=== PATIENT | male | born 1950 | race African-American/Black ===

== ENCOUNTER 2018-09-21 08:32 | Day surgery (SDC) | payer MEDICARE, MEDICAID ==
--- NOTE | 2018-09-18 17:15 | Pre-op HX & Phy Repo 2 SIG ---
DATE OF ADMISSION: 09/21/2018 DATE OF SURGERY: 09/21/2018 PREOPERATIVE DIAGNOSIS: Retinal detachment with multiple breaks, right eye. BRIEF NOTE: This is the first [facility] admission for this patient who was very nice 68-year-old gentleman, who complained of sudden decrease in vision roughly one month ago which has progressed. On examination, he was found to have a retinal detachment in the right eye with multiple breaks and an area in the left eye suspicious for localized walled off detachment superiorly. PAST MEDICAL HISTORY: Benign according to the patient. His ocular history is negative for previous surgery or laser. ALLERGIES: He has no known allergies. MEDICATIONS: He claims he takes no medications. PHYSICAL EXAMINATION: Best vision at the time of the visit was 20/400 in the right eye with constricted espinosa. The left eye was 20/20 with full espinosa. The pressures were 16 in either eye. The anterior segments were quiet. Funduscopic examination of the right eye showed a macula off detachment with retinal tear at 11, 3, 6 and 9. Smaller anterior tears were seen at 12, 4, and 8. The detachment extended from up above into the macula. A small area of retina below the inferotemporal arcade remained attached. The left fundus showed what appeared to be a localized retinal detachment superiorly that appeared to have demarcation at various sites. This did not extend posterior to the equator. No other retinal tears or lesions were seen. ASSESSMENT: 1. Retinal detachment with multiple breaks, right eye. 2. Localized detachment, left eye. PLAN: The plan is to perform pars plana vitrectomy with scleral buckle, endo drainage, endolaser, peripheral cryopexy, and possible silicone oil injection on the right eye. The left eye will be examined carefully and laser indirect treatment will possibly be performed to further barricade the localized area above. The risks and benefits of surgery were gone over the patient with potential for infection on the right, cataract formation, inability to complete the repair of the retina, the need for additional operations, and the possibility of loss of the eye. The risk of anesthesia was discussed. The patient understands and consents to the surgery, which will be performed on Friday morning. Best Lopez M.D. DR: Ana JOB#: [id number] CC:
[2018-09-21] VITALS (7 sets, daily range): BP systolic 125–147; BP diastolic 73–90
[~2018-09-21] VITALS: Ht 170.2 cm; Wt 77.1 kg
[~2018-09-21 08:32] MED LIST: BSS 15ml BTL ONE; BSS 500ml btl ONE; Bupivacaine 0.75% 30ml vial INJ ONE; Cyclopentolate 1% Opth Sol 2ml RIGHT EYE SCH; Dexamethasone 4mg/ml vial ONE; EPINEPHrine 1mg/1ml Amp ONE; Flurbiprofen 0.03% Opth Sol 2.5ml RIGHT EYE SCH; Kenalog-10 5ml Inj ONE; Kenalog-40 1ml Vial ONE; Lidocaine 2% MPF 5ml Vial INJ ONE; Maxitrol Opth Oint 3.5gm ONE; Neosporin Oph Soln 5ml Btl ONE; Phenylephrine 2.5% Op 2ml Soln RIGHT EYE SCH; Povidone-Iodine 5% opth solution ONE; Pred Forte 1% Opth Susp 1ml ONE; Pred Forte 1% Opth Susp 1ml RIGHT EYE SCH; Sodium Hyaluronate 10 mg/ml 0.85ml ONE; Tetracaine 0.5% Opth 4ml Soln ONE; Vigamox Opth Soln 3ml RIGHT EYE SCH
[2018-09-21] MEDS ORDERED: NS Irrig 1000ml ONE (08:33)
[2018-09-21] MEDS ORDERED: Midazolam 2mg/2ml Inj ONE (08:33)
[2018-09-21] MEDS ORDERED: LR 1000ml ONE (08:33)
[2018-09-21] MEDS ORDERED: Morphine Sulfate 10mg/ml Inj ONE (08:33)
[2018-09-21] MEDS ORDERED: fentaNYL 100 mcg/2 mL IV ONE (08:33)
[2018-09-21] MEDS ORDERED: Flurbiprofen 0.03% Opth Sol 2.5ml ONE (08:55)
[2018-09-21] MEDS ORDERED: Phenylephrine 2.5% Op 2ml Soln ONE (08:55)
[2018-09-21] MEDS ORDERED: Vigamox Opth Soln 3ml ONE (08:55)
[2018-09-21] MEDS: Vigamox Opth Soln 3ml BOTH EYES SCH ×3 (09:11→09:33)
[2018-09-21] MEDS: Phenylephrine 2.5% Op 2ml Soln BOTH EYES SCH ×3 (09:11→09:33)
[2018-09-21] MEDS: Cyclopentolate 1% Opth Sol 2ml BOTH EYES SCH ×3 (09:11→09:33)
[2018-09-21] MEDS: Flurbiprofen 0.03% Opth Sol 2.5ml BOTH EYES SCH ×3 (09:11→09:33)
[2018-09-21] MEDS ORDERED: NKM (09:37)
[2018-09-21 09:40] LABS: BASOPHILS % (AUTO) 1.1 % (0.0-2.0); EOSINOPHILS % (AUTO) 4.7 % (0.0-3.0); HEMATOCRIT 46.9 % (42.0-52.0); HEMOGLOBIN 15.6 G/DL (14.2-18.0); LYMPHOCYTES % (AUTO) 20.8 % (20.0-45.0); MEAN CORPUSCULAR VOLUME 84 FL (80-99); MONOCYTES % (AUTO) 6.7 % (1.0-10.0); NEUTROPHILS % (AUTO) 66.7 % (45.0-75.0); PLATELET COUNT 316 K/UL (150-450); RED BLOOD COUNT 5.59 M/UL (4.70-6.10); RED CELL DISTRIBUTION WIDTH 14.1 % (11.6-14.8); WHITE BLOOD COUNT 10.4 K/UL (4.8-10.8)
[2018-09-21 09:57] LABS: ANION GAP 10 mmol/L (5-15); BLOOD UREA NITROGEN 12 mg/dL (7-18); CALCIUM 8.7 MG/DL (8.5-10.1); CARBON DIOXIDE 24 MMOL/L (21-32); CHLORIDE 104 MMOL/L (98-107); CREATININE 1.2 MG/DL (0.55-1.30); POTASSIUM 4.2 MMOL/L (3.5-5.1); SODIUM 137 MMOL/L (136-145)
[2018-09-21] MEDS ORDERED: Pred Forte 1% Opth Susp 1ml BOTH EYES ONE (10:00)
[2018-09-21] MEDS ORDERED: Lidocaine 1% MPF 10mg/ml 5ml ONE (10:23)
[2018-09-21] MEDS ORDERED: Propofol 200mg/20ml IV ONE (10:23)
--- NOTE | 2018-09-21 10:46 | Pre-Procedure Note/Attestation ---
Pre-Procedure Note/Attestation Complete Prior to Procedure Planned Procedure: bilateral Procedure Narrative: 1)PPV, scleral buckle, cryo, endolaser, silicone oil or gas injection Right eye 2)Laser indirect treatment Left eye Indications for Procedure Pre-Operative Diagnosis: Total retinal detachment with multiple breaks Right eye, Localized fluid with retinal break Left eye Attestation I attest that I discussed the nature of the procedure; its benefits; risks and complications; and alternatives (and the risks and benefits of such alternatives ), prior to the procedure, with the patient (or the patient's legal agricultural sales representative). I attest that, if there was a reasonable possibility of needing a blood transfusion, the patient (or the patient's legal agricultural sales representative) was given the [place] Department of Health Services standardized written summary, pursuant to the [place] Blood Safety Act ([place] Health and Safety Code # 1645, as amended). I attest that I re-evaluated the patient just prior to the surgery and that there has been no change in the patient's H&P, except as documented below: IRENE ALEJANDRO Sep 21, 2018 10:46
[2018-09-21] MEDS ORDERED: DiphenhydrAMINE 50mg/ml Inj IVP PRN (11:15)
[2018-09-21] MEDS ORDERED: fentaNYL 100 mcg/2 mL IV PRN (11:15)
--- NOTE | 2018-09-21 11:24 | Anethesia Preoperative Eval ---
Anesthesia Pre-op PMH/ROS General Date of Evaluation: Sep 21, 2018 Time of Evaluation: 10:25 Anesthesiologist: Avelino ASA Score: ASA 2 Mallampati Score Class I : Soft palate, uvula, fauces, pillars visible Class II: Soft palate, uvula, fauces visible Class III: Soft palate, base of uvula visible Class IV: Only hard plate visible Mallampati Classification: Class II Surgeon: Jessica Diagnosis: Detached retina right eye Surgical Procedure: Victrectomy, membrane peel, Scleral buckle, endolaser Anesthesia History: none Family History: no anesthesia problems Allergies: Coded Allergies: No Known Allergies (Unverified , 09/21/18) Patient NPO?: Yes NPO Date: Sep 20, 2018 NPO Time: 20:00 Past Medical History Cardiovascular: Denies: HTN, CAD, [place], valve dz, arrhythmia, other Pulmonary: Denies: asthma, COPD, JENNIFER, other Gastrointestinal/Genitourinary: Denies: GERD, CRI, ESRD, other Neurologic/Psychiatric: Denies: dementia, CVA, depression/anxiety, TIA, other Endocrine: Denies: DM, hypothyroidism, steroids, other HEENT: Denies: cataract (L), cataract (R), glaucoma, [place] (L), [place] (R), other Hematology/Immune: Denies: anemia, DVT, bleeding disorder, other Musculoskeletal/Integumentary: Denies: OA, RA, DJD, DDD, edema, other PMH Narrative: EtOH PSxH Narrative: Denies Anesthesia Pre-op Phys. Exam Physician Exam Last Vital Signs Date Time Temp Pulse Resp B/P (MAP) Pulse Ox O2 Delivery O2 Flow Rate FiO2 09/21/18 09:44 98.7 81 18 136/84 97 Room Air Constitutional: NAD Neurologic: CN 2-12 intact Cardiovascular: RRR, no M/R/G Respiratory: CTA Gastrointestinal: S/NT/ND Airway Exam Mallampati Score: Class II MO: full ROM: full Teeth: missing, broken Anesthesia Pre-op A/P Labs Hematology Test 09/21/18 09:00 White Blood Count 10.4 K/UL (4.8-10.8) Red Blood Count 5.59 M/UL (4.70-6.10) Hemoglobin 15.6 G/DL (14.2-18.0) Hematocrit 46.9 % (42.0-52.0) Mean Corpuscular Volume 84 FL (80-99) Mean Corpuscular Hemoglobin 27.9 PG (27.0-31.0) Mean Corpuscular Hemoglobin Concent 33.3 G/DL (32.0-36.0) Red Cell Distribution Width 14.1 % (11.6-14.8) Platelet Count 316 K/UL (150-450) Mean Platelet Volume 6.4 FL (6.5-10.1) L Neutrophils (%) (Auto) 66.7 % (45.0-75.0) Lymphocytes (%) (Auto) 20.8 % (20.0-45.0) Monocytes (%) (Auto) 6.7 % (1.0-10.0) Eosinophils (%) (Auto) 4.7 % (0.0-3.0) H Basophils (%) (Auto) 1.1 % (0.0-2.0) Chemistry Test 09/21/18 09:00 Sodium Level 137 MMOL/L (136-145) Potassium Level 4.2 MMOL/L (3.5-5.1) Chloride Level 104 MMOL/L (98-107) Carbon Dioxide Level 24 MMOL/L (21-32) Anion Gap 10 mmol/L (5-15) Blood Urea Nitrogen 12 mg/dL (7-18) Creatinine 1.2 MG/DL (0.55-1.30) Estimat Glomerular Filtration Rate > 60 mL/min (>60) Glucose Level 102 MG/DL (74-106) Calcium Level 8.7 MG/DL (8.5-10.1) Risk Assessment & Plan Assessment: 68 yo male with medical h/o EtOH Plan: GA, LMA Status Change Before Surgery: No Pre-Antibiotics Drug: None Sarbjit You MD Sep 21, 2018 11:24
--- NOTE | 2018-09-21 11:34 | Immediate Post-Op Evaluation ---
Immediate Post-Op Evalulation Immediate Post-Op Evalulation Procedure: Vitrectomy, membrane peel, endolaser, scleral buckle right eye Date of Evaluation: Sep 21, 2018 Time of Evaluation: 13:40 IV Fluids: 650 Blood Pressure Systolic: 138 Blood Pressure Diastolic: 76 Pulse Rate: 72 Respiratory Rate: 18 O2 Sat by Pulse Oximetry: 100 Temperature (Fahrenheit): 97.3 Pain Score (1-10): 0 Nausea: No Vomiting: No Complications No complication Patient Status: reacts, patent, none Hydration Status: adequate Drug: None Sarbjit You MD Sep 21, 2018 11:34
[2018-09-21] MEDS ORDERED: Labetalol 5mg/ml 20ml vial IV ONE (11:42)
[2018-09-21] MEDS ORDERED: acetaZOLAMIDE 500mg Inj ONE (13:16)
--- NOTE | 2018-09-21 13:33 | 48 Hour Post Anesthesia Eval ---
Post Anesthesia Evaluation Procedure: Vitrectomy, membrane peel, endolaser, scleral buckle right eye Date of Evaluation: Sep 21, 2018 Time of Evaluation: 14:00 Blood Pressure Systolic: 125 0: 73 Pulse Rate: 78 Respiratory Rate: 17 O2 Sat by Pulse Oximetry: 100 Airway: patent Nausea: No Vomiting: No Pain Intensity: 0 Hydration Status: adequate Cardiopulmonary Status: stable Mental Status/LOC: patient returned to baseline Follow-up Care/Observations: As per surgery Post-Anesthesia Complications: No anesthetic complication Follow-up care needed: N/A Sarbjit You MD Sep 21, 2018 13:33
--- NOTE | 2018-09-22 13:18 | Brief Operative Note ---
Immediate Post Operative Note Operative Note Chief Complaint: Loss of vision Right Eye Pre-op Diagnosis: Total retinal detachment with multiple breaks Right eye, Localized fluid with retinal break Left eye Procedure: 1) Pars plana vitrectomy, scleral buckle (240 band, 287 tire, 70 sleeve), peripheral cryopexy, Endolaser 1735 spots, Kenalog injection, SIlicone oil injection (1000 centistokes) right eye 2) Retinal exam under anesthesia L eye Post-op Diagnosis: Retinal detachment with multiple breaks Right eye, Possible localized detachment Left eye Findings: consistent w/pre-op dx studies - No treatable tears found, Left eye Surgeon: Jessica Cardiovascular Or Nurse: none Anesthesiologist: Annette Anesthesia: general Specimen: none Complications: none Condition: stable Fluids: Per Anesthesia Estimated Blood Loss: none Drains: none Implant(s) used?: Yes - Scleral buckle....see above IRENE ALEJANDRO Sep 22, 2018 13:18
--- NOTE | 2018-09-22 16:41 | Cardiology Report ---
APPROVED REPORT EKG Measurement Heart [id number] [place] [id number] Normal sinus rhythm Normal ECG
--- NOTE | 2018-09-22 23:45 | Operative Note - Dictated ---
DATE OF OPERATION: 09/21/2018 PREOPERATIVE DIAGNOSES: 1. Retinal detachment with multiple tears, right eye. 2. Possible localized detachment, left eye. PROCEDURES PERFORMED: 1. Retinal examination under anesthesia, left eye. 2. Pars plana vitrectomy, scleral buckle, peripheral cryopexy, endolaser, Kenalog injection, and silicone oil injection, right eye. SURGEON: Best Lopez M.D. INSOLE DEPARTMENT WORKER: None. ANESTHESIA: LMA general with Dr. You. JUSTIFICATION FOR SURGERY: This 68-year-old gentleman noted loss of vision in the right eye over the last five to six weeks. He was found to have a macula of retinal detachment on that side with multiple holes. Examination of the left eye in the office revealed a possible localized detachment with auto-demarcation. The patient was admitted for surgery. BRIEF NOTE: The patient was brought to the operating room and placed on OR table in supine position. After time-out was performed and agreed upon by the staff, general LMA anesthesia was induced by Dr. You. Retrobulbar and Van Lint blocks were then given in the standard way to limit intraoperative anesthetic and reduce postoperative pain. Prior to prepping, the left eye was examined carefully under anesthesia with the indirect ophthalmoscope. An area of retinal thinning and possible schisis was noted superiorly anterior to the equator. Several areas of pigmentation were seen adjacent to this, which appeared to be an attempt for the pigment to wall off the localized detachment. No specific breaks that appear to be in need of treatment were found. The retina was examined 360 degrees and no other source of pathology was noted. It was therefore elected to do no specific treatment. The patient was then prepped and draped in the normal manner around the right eye. A lid speculum was inserted. A 360-degree peritomy was then cut with relaxation incisions at the 3 and 9 o'clock positions. The muscles were isolated, in turn, white and black ties. The quadrants were explored and found to be without scleral thinning. The eye was examined with the indirect ophthalmoscope and multiple retinal breaks were found in each quadrant. Each of these was marked on the sclera in preparation for a buckle. The larger breaks were treated in the anterior portion with gentle cryopexy. The posterior portion of these breaks was left for laser treatment. Breaks that were noted to be more posteriorly were left alone. Once this maneuver was completed, preparation was made for scleral buckle. Mattress sutures of 5-0 nylon were placed in each quadrant with the inferior quadrants having the sutures placed 6 mm apart and in the superior quadrant the sutures were placed 3 mm apart. A 240 band was then encircled about the eye going beneath the mattress sutures on the muscles and secured loosely with a 70-sleeve in the superonasal quadrant. A segment of 287 Tire was then chosen and this was placed beneath the buckle and the inferior rectus muscle and extended up temporally to underneath the lateral rectus muscle. Once the buckle was inserted, all sutures were tied and rotated posteriorly. The buckle was brought up so that there was no slack on either end of the sleeve. With this maneuver completed, preparation was made for the vitrectomy. Using a 23-gauge trocar system, cannulas were placed in all except inferonasal quadrant. Infusion secured inferotemporally. Vitrectomy was begun posterior to the lens taking care to avoid contact. A central core vitrectomy was done. Kenalog, dilute, was injected to help with visualization of the vitreous. Under shaving mode, the vitreous was excised peripherally up to the edge of the retinal breaks and the flaps thereof. Once the vitreous had been cleared and the retina freely mobile, an endo cautery was brought to the eye and all tears were gently localized on the edge with cautery for later visualization. An area just superior and nasal to the optic nerve was chosen for posterior retinotomy. The cautery was used at this point to form a small opening. At this juncture, an air-fluid exchange was performed with drainage through the posterior retinotomy. The retina was noted to nicely flatten. With the retina now flat, the endolaser was brought to the eye and a power of 0.3 mckinney, duration 0.2 seconds, laser treatment was applied completely surrounding all previously marked retinal breaks and also the posterior retinotomy with at least 3 rows of laser. A total of 1735 lesions were applied. Remaining accumulated fluid was then suctioned from the eye and silicone oil was then injected. A 1000 centistoke oil was used to perform roughly a 90% fill. The eye was examined and the retina was noted to be completely flat with all tears well treated with laser. The eye was left normal to soft in terms of tension and the two superior sclerotomies were closed with 8-0 Vicryl suture after the cannula was removed. The infusion cannula was similarly removed and this sclerotomy closed with the same suture. All bridle sutures were removed from the muscles and conjunctiva and tenons capsule were pulled up and secured with interrupted sutures at 3 and 9 o'clock positions. A 6-0 plain catgut was used with the knots buried. Additional Xylocaine 2% was injected beneath the conjunctiva to limit postoperative pain. Subconjunctival Decadron and gentamicin were then injected inferiorly and topical atropine drops, moxifloxacin drops, prednisolone drops, and Maxitrol ointment were instilled. The eye was patched and shielded, and the patient taken to recovery in excellent condition to be placed in a face-down position. There were no complications. Best Lopez M.D. DR: ANA JOB#: [id number] CC:
== END 2018-09-21 15:02 | disposition home or self-care (01) ==
LOC: SUR 08:32
DX: H33.021 Retinal detachment with multiple breaks, right eye (principal)
CPT/HCPCS: 36415; 67108; 80048; 82962; 85025; 93005; J0171; J1100; J1120; J2250; J2270; J2405; J2704; J3010; J3301; J3470; J3490; 94003; 94150

== ENCOUNTER 2018-12-21 06:22 | Day surgery (SDC) | payer MEDICARE, MEDICAID ==
--- NOTE | 2018-12-09 06:26 | Pre-Procedure Note/Attestation ---
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 I attest that, if there was a reasonable possibility of needing a blood transfusion, the patient (or the patient's legal practice representative) was given the [place] Department of Health Services standardized written summary, pursuant to the [place] Blood Safety Act ([place] Health and Safety Code # 1645, as amended). I attest that I re-evaluated the patient just prior to the surgery and that there has been no change in the patient's H&P, except as documented below: Best Lopez MD Dec 09, 2018 06:26
[2018-12-21] VITALS (14 sets, daily range): BP systolic 113–147; BP diastolic 61–86
[~2018-12-21] VITALS: Ht 170.2 cm; Wt 78.0 kg
[~2018-12-21 06:22] MED LIST changes: +Indocyanine Green 25mg Inj INJ ONE; +Midazolam 2mg/2ml Inj ONE; +NKM; -Neosporin Oph Soln 5ml Btl ONE; +Norco 5mg/325mg tab ORAL PRN; +Propofol 200mg/20ml IV ONE; +Triamcinolone 40mg/ml PF Vial ONE; +fentaNYL 100 mcg/2 mL IV ONE
[2018-12-21] MEDS: Phenylephrine 2.5% Op 2ml Soln RIGHT EYE SCH ×3 (07:00→07:12)
[2018-12-21] MEDS ORDERED: Pred Forte 1% Opth Susp 1ml RIGHT EYE ONE (07:00)
[2018-12-21] MEDS: Flurbiprofen 0.03% Opth Sol 2.5ml RIGHT EYE SCH ×3 (07:00→07:12)
[2018-12-21] MEDS: Cyclopentolate 1% Opth Sol 2ml RIGHT EYE SCH ×3 (07:00→07:12)
[2018-12-21] MEDS: Vigamox Opth Soln 3ml RIGHT EYE SCH ×3 (07:00→07:12)
--- NOTE | 2018-12-21 07:08 | Anethesia Preoperative Eval ---
Anesthesia Pre-op PMH/ROS General Date of Evaluation: Dec 21, 2018 Anesthesiologist: Kimani ASA Score: ASA 2 Mallampati Score Class I : Soft palate, uvula, fauces, pillars visible Class II: Soft palate, uvula, fauces visible Class III: Soft palate, base of uvula visible Class IV: Only hard plate visible Mallampati Classification: Class II Surgeon: Jessica Diagnosis: Macular hole right eye Surgical Procedure: Right eye vitrectomy Anesthesia History: none Family History: no anesthesia problems Allergies: Coded Allergies: No Known Allergies (Unverified , 12/21/18) Medications: see eMAR Patient NPO?: Yes NPO Date: Dec 20, 2018 Past Medical History Cardiovascular: Denies: HTN, CAD, [place], valve dz, arrhythmia, other Pulmonary: Denies: asthma, COPD, [place], other Gastrointestinal/Genitourinary: Denies: GERD, CRI, ESRD, other Neurologic/Psychiatric: Denies: dementia, CVA, depression/anxiety, TIA, other Endocrine: Denies: DM, hypothyroidism, steroids, other HEENT: Denies: cataract (L), cataract (R), glaucoma, [place] (L), [place] (R), other Hematology/Immune: Denies: anemia, DVT, bleeding disorder, other Musculoskeletal/Integumentary: Denies: OA, RA, DJD, DDD, edema, other PSxH Narrative: Right eye vitrectomy Anesthesia Pre-op Phys. Exam Physician Exam Last Vital Signs Date Time Temp Pulse Resp B/P (MAP) Pulse Ox O2 Delivery O2 Flow Rate FiO2 12/21/18 07:03 98.4 75 18 134/86 99 Room Air Constitutional: NAD Cardiovascular: RRR Respiratory: CTA Airway Exam Mallampati Score: Class II MO: full ROM: full Teeth: missing, intact, broken Anesthesia Pre-op A/P Labs see chart Studies Pre-op Studies: EKG - sr Risk Assessment & Plan Assessment: ASA II Plan: MAC Status Change Before Surgery: No Pre-Antibiotics Drug: N/A Ninoska Keenan MD Dec 21, 2018 07:08
[2018-12-21] MEDS ORDERED: EPINEPHrine 1mg/1ml Amp ONE (07:12)
[2018-12-21] MEDS ORDERED: Dexamethasone 4mg/ml vial ONE (07:13)
[2018-12-21] MEDS ORDERED: fentaNYL 100 mcg/2 mL IV ONE (07:13)
[2018-12-21] MEDS ORDERED: Propofol 200mg/20ml IV ONE (07:13)
[2018-12-21] MEDS ORDERED: BSS 500ml btl ONE (07:13)
[2018-12-21] MEDS ORDERED: Kenalog-10 5ml Inj ONE (07:13)
[2018-12-21] MEDS ORDERED: Kenalog-40 1ml Vial ONE (07:13)
[2018-12-21] MEDS ORDERED: BSS 15ml BTL ONE (07:13)
[2018-12-21] MEDS ORDERED: Maxitrol Opth Oint 3.5gm ONE (07:13)
[2018-12-21] MEDS ORDERED: Lidocaine 2% MPF 5ml Vial INJ ONE (07:13)
[2018-12-21] MEDS ORDERED: Pred Forte 1% Opth Susp 1ml ONE (07:13)
[2018-12-21] MEDS ORDERED: Midazolam 2mg/2ml Inj ONE (07:13)
[2018-12-21] MEDS ORDERED: Lidocaine 1% MPF 10mg/ml 5ml ONE (07:13)
[2018-12-21] MEDS ORDERED: Sodium Hyaluronate 10 mg/ml 0.85ml ONE (07:14)
[2018-12-21] MEDS ORDERED: Bupivacaine 0.75% 30ml vial INJ ONE (07:14)
[2018-12-21] MEDS ORDERED: Tetracaine 0.5% Opth 4ml Soln ONE (07:14)
[2018-12-21] MEDS ORDERED: Povidone-Iodine 5% opth solution ONE (07:14)
[2018-12-21] MEDS ORDERED: Zemuron 50mg/5ml Inj IV ONE (07:24)
[2018-12-21] MEDS ORDERED: LR 1000ml 1,000 ML IVLG SCH (07:26)
[2018-12-21 07:28] LABS: ANION GAP 8 mmol/L (5-15); BLOOD UREA NITROGEN 19 mg/dL (7-18); CALCIUM 8.8 MG/DL (8.5-10.1); CARBON DIOXIDE 23 MMOL/L (21-32); CHLORIDE 106 MMOL/L (98-107); CREATININE 1.2 MG/DL (0.55-1.30); POTASSIUM 5.4 MMOL/L (3.5-5.1); SODIUM 137 MMOL/L (136-145)
[2018-12-21 07:30] LABS: BASOPHILS % (AUTO) 1.7 % (0.0-2.0); EOSINOPHILS % (AUTO) 8.5 % (0.0-3.0); HEMATOCRIT 42.5 % (42.0-52.0); HEMOGLOBIN 13.9 G/DL (14.2-18.0); LYMPHOCYTES % (AUTO) 24.3 % (20.0-45.0); MEAN CORPUSCULAR VOLUME 83 FL (80-99); MONOCYTES % (AUTO) 8.5 % (1.0-10.0); PLATELET COUNT 327 K/UL (150-450); RED CELL DISTRIBUTION WIDTH 14.3 % (11.6-14.8); WHITE BLOOD COUNT 10.4 K/UL (4.8-10.8)
[2018-12-21] MEDS ORDERED: Hydromorphone 0.5mg/0.5ml inj IVP PRN (07:30)
[2018-12-21] MEDS ORDERED: LORazepam Inj 2mg/ml 1ml IV PRN (07:30)
[2018-12-21] MEDS ORDERED: Midazolam 2mg/2ml Inj IVP PRN (07:30)
[2018-12-21] MEDS ORDERED: Metoclopramide 10mg/2ml Inj IVP PRN (07:30)
[2018-12-21] MEDS ORDERED: fentaNYL 100 mcg/2 mL IV PRN (07:30)
[2018-12-21] MEDS ORDERED: DiphenhydrAMINE 50mg/ml Inj IVP PRN (07:30)
[2018-12-21] MEDS ORDERED: Norco 5mg/325mg tab ORAL PRN (07:45)
[2018-12-21] MEDS ORDERED: LR 1000ml ONE (08:00)
[2018-12-21] MEDS ORDERED: NS Irrig 1000ml ONE (08:00)
[2018-12-21] MEDS ORDERED: Sterile Water Irrig 1000ml IRRIG ONE (08:00)
--- NOTE | 2018-12-21 09:25 | Brief Operative Note ---
Immediate Post Operative Note Operative Note Pre-op Diagnosis: Stage IV macular hole behind silicone oil Right eye Procedure: PPV, removal of silicone oil, Endolaser 389 spots, ICG assisted membrane peel, paracentesis and evacuation of anterior chamber, gas-fluid exchange 24% SF-6 RIGHT eye Post-op Diagnosis: same as pre-op Surgeon: tao Anesthesiologist: Alina Anesthesia: general Specimen: none Complications: none Condition: stable Fluids: per anesthesia Estimated Blood Loss: none Drains: none Implant(s) used?: No Best Lopez MD Dec 21, 2018 09:25
--- NOTE | 2018-12-21 09:25 | 48 Hour Post Anesthesia Eval ---
Post Anesthesia Evaluation Procedure: Right eye vitrectomy Date of Evaluation: Dec 21, 2018 Airway: patent Nausea: No Vomiting: No Pain Intensity: 0 Hydration Status: adequate Cardiopulmonary Status: at baseline Mental Status/LOC: patient returned to baseline Post-Anesthesia Complications: 0 Follow-up care needed: ready to discharge Ninoska Keenan MD Dec 21, 2018 09:25
--- NOTE | 2018-12-21 09:25 | Immediate Post-Op Evaluation ---
Immediate Post-Op Evalulation Immediate Post-Op Evalulation Procedure: Right eye vitrectomy Date of Evaluation: Dec 21, 2018 Time of Evaluation: 09:26 IV Fluids: 600 Blood Products: 0 Estimated Blood Loss: 0 Urinary Output: 0 Blood Pressure Systolic: 113 Blood Pressure Diastolic: 70 Pulse Rate: 72 Respiratory Rate: 16 O2 Sat by Pulse Oximetry: 100 Temperature (Fahrenheit): 97.3 Pain Score (1-10): 0 Nausea: No Vomiting: No Complications 0 Patient Status: awake, reacts, patent, none Hydration Status: adequate Drug: N/A Ninoska Keenan MD Dec 21, 2018 09:25
--- NOTE | 2018-12-21 23:30 | Operative Note - Dictated ---
DATE OF OPERATION: 12/21/2018 PREOPERATIVE DIAGNOSIS: Macular hole, right eye, status post retinal detachment repair with silicone oil. POSTOPERATIVE DIAGNOSIS: Macular hole, right eye, status post retinal detachment repair with silicone oil. PROCEDURES PERFORMED: 1. Pars plana vitrectomy. 2. Removal of silicone oil. 3. Evacuation of silicone oil in anterior chamber via paracentesis. 4. ICG assisted membrane peel. 5. Gas-fluid exchange, right eye. SURGEON: Best Lopez M.D. PIN STICKER: None. ANESTHESIOLOGIST: Dr. Ninoska Gonzalez. ANESTHESIA: LMA general. JUSTIFICATION FOR SURGERY: This is a 68-year-old gentleman presented several months ago with a total retinal detachment, macula off. He underwent successful scleral buckling and vitrectomy, surgery with silicone oil and was subsequently found to have a stage 4 macular hole. He is admitted for oil removal and macular hole repair. BRIEF NOTE: The patient was brought to the operative room and placed on the OR table in supine position. After a time-out was performed and agreed upon by the staff, a general LMA anesthesia was induced by Dr. Gonzalez. A retrobulbar block was then given to the right eye to limit the intraoperative anesthetic and postoperative pain. The patient was then prepped and draped in normal manner. A lid speculum was inserted into the right eye. Using a 23-gauge trocar system, cannulas were placed in all except infranasal quadrant. Infusion secured inferotemporally. Vitrectomy was begun by removing the silicone oil bubble. This was done with the oil inspector and went without complication. At this juncture, there was noted to be small droplets of oil in the anterior chamber. A paracentesis was made at the 11 o'clock position and using a 23-gauge angle cannula with balanced salt solution, these bubbles were evacuated. The posterior viewing lens was inserted and there was noted to be a stage 4 macular hole, roughly 250 microns in diameter. ICG dye was used to stain the internal limiting lamina. After which, intraocular forceps were used to engage and remove the internal limiting lamina in a circular area roughly 3 disc diameters in size. A Romeo grape picker was used to mobilize the edges of the macular hole slightly closing the defect. No problems were encountered. An air-fluid exchange was then performed to remove small oil bubble remnants and capsular remnants. The endolaser was then brought into the eye and peripheral breaks were reinforced at a power of 0.3 mckinney, duration of 0.1 seconds. A total of 389 lesions were applied. A gas-gas exchange was then done using a 24% mixture of SF6. The eye was left normotensive as the cannulas were removed and each sclerotomy closed with 8-0 Vicryl suture with a knot buried. Subconjunctival Decadron and gentamicin were then injected inferiorly and topical prednisolone drops, Vigamox drops, atropine drops, and Maxitrol ointment were instilled. The eye was patched and shielded. The patient was taken to recovery in excellent condition to be placed in a face-down position. There were no complications. Best Lopez M.D. DR: GEORGIE JOB#: [id number] CC: Best Lopez M.D.; Fax#: [phone]
--- NOTE | 2018-12-23 09:00 | Pre-op HX & Phy Repo 2 SIG ---
DATE OF ADMISSION: 12/21/2018 DATE OF SURGERY: 12/21/2018 PREOPERATIVE DIAGNOSIS: Macular hole, right eye, status post retinal detachment repair with silicone oil. BRIEF NOTE: This is a second [place] admission for this patient, who is a very nice 68-year-old gentleman with a history of retinal detachment in the right eye noted in September 2018. Detachment involved multiple breaks and was successfully repaired with a scleral buckle and silicone oil. On review, postoperatively, he was found to have a stage IV macular hole behind the silicone oil, which spontaneously closed. He is admitted for removal of the silicone oil and repair of the macular hole rather with ILM peeling and gas injection. PAST OCULAR HISTORY: Otherwise benign. PAST MEDICAL HISTORY: Benign according to the patient. PAST SURGICAL HISTORY: He had not had previous surgery prior to the retinal detachment procedure. ALLERGIES: He has no allergies. MEDICATIONS: He claims he takes no medications. PHYSICAL EXAMINATION: Best vision at the time of the visit was 24/100 in the right eye and 20/20 in the left with full espinosa. The pressures were 16. The anterior segments were quiet except for [id number] nuclear sclerosis on the right. Funduscopic examination of the right eye showed a complete scleral buckle with the retina attached behind silicone oil, which was represented by an 85% fill. There was a stage IV macular hole behind the oil. The left anterior segment showed what appeared to be a localized area of white without pressure superiorly. No open breaks were seen and no evidence of detachment noted. General physical examination will be updated by Dr. Gonzalez. ASSESSMENT: Stage IV macular hole, right eye, status post silicone oil and retinal detachment repair. PLAN: The plan as noted above is to perform pars plana vitrectomy with removal of the silicone oil, additional endolaser as needed, peeling of the internal limiting lamina, and instillation of a gas bubble. The risks and benefits of surgery gone over with the patient with potential for infection, hemorrhage, inability to close the macular hole, recurrent retinal detachment, cataract formation, and remote possibility of loss of the eye. The risk of anesthesia was discussed. The patient understands and consents to the surgery to be performed this morning. Best Lopez M.D. DR: BANG JOB#: [id number] CC:
--- NOTE | 2018-12-25 14:30 | Pre-op HX & Phy Repo 2 SIG ---
DATE OF ADMISSION: 12/21/2018 PRESURGICAL INTERNAL MEDICINE HISTORY AND PHYSICAL: REASON FOR EVALUATION: This 68-year-old male was referred for presurgical evaluation by Dr. Best Lopez. The patient is going for elective surgery on the right eye. The patient was evaluated. Chart was reviewed of the patient's surgical department. The patient has a macular hole, right eye. Please see History and Physical by Dr. Best Lopez. PAST MEDICAL HISTORY/REVIEW OF SYSTEMS: Unremarkable. The patient denies history of hypertension. No diabetes. No history of renal failure. No GI bleeding. No anemia or thyroid problem. No prostate problem. PAST SURGICAL HISTORY: Right eye retinal detachment surgery in August 2018 at [place]. FAMILY HISTORY: Mother of dementia and father with colon and prostate cancer. ALLERGIES: Not known. PRESENT MEDICATIONS: Occasional Tylenol for pain. HABITS: The patient smoked cigar all his life to present time. Denied alcohol or street drug use. PHYSICAL EXAMINATION: GENERAL: The patient is alert, well-developed, well-nourished male in his 60s. VITAL SIGNS: Blood pressure 134/86, temperature 98.4, pulse 75 regular, respirations 18, and O2 saturation 99% on room air. SKIN: Dry, clear. No rashes or ulcers. Lymph nodes not enlarged. HEENT: Head, normocephalic and atraumatic. Ears, clear. Eyes, full description per Dr. Best Lopez. Mouth, clear, moist. Absence of front teeth. NECK: Supple. No jugular venous distention. Carotids artery +2. Trachea midline. CHEST: No deformity or asymmetry. No mass. LUNGS: Clear to auscultation and percussion. No rales or rhonchi. HEART: Sinus rhythm. No ectopy. No murmur. No S3 or S4. ABDOMEN: Soft, benign. No rebound. No palpable mass. EXTREMITIES: No edema. No calf tenderness. No varicose veins. GENITOURINARY: Intact. No CVA tenderness. No dysuria. NEUROLOGIC: No tremor. No nystagmus. LABORATORY AND DIAGNOSTIC DATA: ECG, normal sinus rhythm, normal ECG. LABORATORY DATA: Pending. The patient did not eat or drink from 11 p.m. yesterday. IMPRESSION: Macular hole, right eye. PLAN: Pars plana vitrectomy, membrane peel, silicone oil per Dr. Best Lopez. CONCLUSION: The patient's vital signs stable. The patient takes no medications. EKG is normal. The patient's condition optimized for surgery. Thank you very much, Dr. Lopez, for privilege to participate in presurgical care of this interesting patient. Maggy Gonzalez M.D. DR: LALA JOB#: [id number] CC:
== END 2018-12-21 11:30 | disposition home or self-care (01) ==
LOC: SUR 06:22
DX: H35.341 Macular cyst, hole, or pseudohole, right eye (principal)
CPT/HCPCS: 36415; 67042; 67121; 80048; 85025; J0171; J1100; J1170; J2250; J2704; J3010; J3470; J3490; 94003; 94150; J3300